=== PATIENT | male | born 1960 | race Caucasian/White ===

== ENCOUNTER 2016-10-03 09:58 | Emergency (ER) | payer OTHER ==
[2016-10-03 10:30] VITALS: BP 136/83; PULSE 72; RESP 18; TEMP 98.4; O2SAT 96
--- NOTE | 2016-10-03 11:58 | UCPHY ---
H & P Patient Type: New Smoking Status: Light smoker <Ana Crain - Last Filed: 10/03/16 11:55> Patient Type: New <Lisa Olivo - Last Filed: 10/03/16 14:06> Time Seen by Provider: 10/03/16 11:17 HPI/ROS: CHIEF COMPLAINT: abscess HISTORY OF PRESENT ILLNESS: 55-year-old immunocompetent male presents complaining of multiple abscesses to his buttocks x5 days. Patient reports he has had this many times and may spontaneously drain in improve on their own, these seem to be bigger and deeper and are worsening. Patient denies fevers. He reports chills yesterday, no nausea or vomiting. (Ana Crain) Physical Exam: GEN: Awake, alert, oriented, no acute distress RESP: nl resp effort MSK: Normal appearing SKIN: Multiple areas to bilateral buttock erythematous, indurated, fluctuant with central pustules (Ana Crain) Constitutional: Initial Vital Signs Temperature (C) 36.9 C 10/03/16 10:25 Heart Rate 72 10/03/16 10:25 Respiratory Rate 18 10/03/16 10:25 Blood Pressure 136/83 H 10/03/16 10:25 O2 Sat (%) 96 10/03/16 10:25 O2 Delivery Mode Room Air Allergies/Adverse Reactions: No Known Allergies Allergy (Unverified 10/03/16 10:24) Home Medications: Medication Instructions Recorded Cephalexin [Keflex] 500 mg PO QID 5 Days 10/03/16 Hydrocodone/APAP 5/325 [[place] 1 tab PO Q4H PRN #10 tab 10/03/16 5/325] Sulfamethox/Tmp 800/160 mg 1 tab PO BID #14 tab 10/03/16 [Bactrim Ds] MDM/Departure <Ana Crain - Last Filed: 10/03/16 11:55> <Lisa Olivo - Last Filed: 10/03/16 14:06> - [facility] Procedures: Procedure: Incision and Drainage abscess. The patient's abscess was located on the buttock. Risks, benefits, alternatives discussed with the patient and consent obtained. The area was prepped and draped in sterile fashion. The patient received local anesthesia with 1% lidocaine with epinephrine. The abscess was incised with a #11 blade and purulent drainage was expressed. The patient tolerated the procedure well. The procedure was performed by myself. (Ana Crain) ED Course/Re-evaluation: The patient was evaluated and managed by the nurse practitioner, Ana Crain. My co-signature indicates that I have reviewed this chart and I agree with the findings and plan of care as documented. I am the secondary supervising physician. (Lisa Olivo) - Depart Disposition: Home, Routine, Self-Care Clinical Impression: Abscess of cellulitis of buttock Instructions: Incision and Drainage (ED), Cellulitis (ED) Additional Instructions: Warm Sitz baths 5 times a day for 10 minutes, take your antibiotics as prescribed, return or follow up with the primary care doctor for worsening symptoms. Prescriptions: Sulfamethox/Tmp 800/160 mg [Bactrim Ds] 1 tab PO BID #14 tab Cephalexin [Keflex] 500 mg PO QID 5 Days Hydrocodone/APAP 5/325 [[place] 5/325] 1 tab PO Q4H PRN #10 tab PRN Reason: Pain, Moderate Referrals: Carl Lawrence MD [Primary Care Provider] - As per Instructions - PQRS PQRS Measurement: na (Ana Crain)
== END 2016-10-03 12:02 | disposition home or self-care (01) ==
LOC: CED 09:58
PROC: 0H98XZZ Drainage of Buttock Skin, External Approach (ICD-10-PCS; principal; 2016-10-03)
DX: L03.317 Cellulitis of buttock (principal); Z72.0 Tobacco use
CPT/HCPCS: 99202-PO; G0463-PO